=== PATIENT | male | born 1950 | race Caucasian/White ===

== ENCOUNTER 2024-01-10 23:51 | Emergency (ER) | payer OTHER, SELFPAY ==
[2024-01-11] MEDS ORDERED: NA CHLORIDE 0.9% 500 ML ONE (00:48)
[2024-01-11] MEDS ORDERED: NA CHLORIDE 0.9% 1,000 ML ONE (00:48)
[2024-01-11 01:02] LABS: Absolute Basophils 0.1 K/uL (0-0.5); Absolute Eosinophils 0.2 K/uL (0-0.5); Absolute Monocytes 0.8 K/uL (0.1-1.3); Absolute Neutrophil 3.9 K/uL (1.8-8.0); Basophils % 1.1 % (0-1.3); Eosinophils % 2.8 % (0-4.4); Hematocrit 42.1 % (39.6-49.0); Hemoglobin 13.2 g/dL (13.6-17.9); Lymphocytes % 28.8 % (15.3-44.8); MCH 22.1 pg (27.0-35.0); MCHC 31.4 g/dL (32.0-36.0); MCV 70.2 fL (80-100); Monocytes % 11.8 % (3.3-12.3); Neutrophils % 55.5 % (41.7-73.7); Nucleated Red Blood Cells % 0.1 % (0-0); PT Prothrombin Time 13.1 SECONDS (9.4-12.5); Platelets 388 thou/uL (152-406); Protime INR 1.18; Red Cell Distribution Width 20.6 % (12.1-15.2)
[2024-01-11 01:12] LABS: SARS-CoV-2 Antigen CONTROL BLUE LINE VIS/BG OK; SARS-CoV-2 Antigen Rapid Res Negative (Negative)
[2024-01-11 01:18] LABS: Albumin 3.3 g/dL (3.4-5.0); Albumin/Globulin Ratio 0.8 (1.1-1.8); Anion Gap 7.6 mEq/L (5.0-15.0); Bilirubin Direct 0.2 mg/dL (0-0.2); Bilirubin Indirect, Calculated 0.4 mg/dL (0.2-0.8); Bilirubin Total 0.6 mg/dL (0.2-1.0); Potassium 3.6 mEq/L (3.5-5.1); Protein, Total 7.3 g/dL (6.4-8.2); Troponin High Sensitivity 6.2 pg/mL (<58.9)
[2024-01-11 01:18] LABS: Sqamous Epithelial <5 /HPF (None Seen); Urine Bacteria 20-50 /HPF (<20); Urine Bilirubin NEGATIVE (Negative); Urine Blood 1+ (Negative); Urine Clarity Extremely Turbid (Clear); Urine Color Yellow (Yellow); Urine Culture Reflex Order REFLEXED; Urine Glucose NEGATIVE (Negative); Urine Ketones NEGATIVE (Negative); Urine Microscopic Reflex YN ORDER UMIC; Urine Mucus Slight /HPF (None Seen); Urine Nitrite 2+ (Negative); Urine Protein 1+ (Negative); Urine Urobilinogen Normal (Normal); Urine WBC >50 /HPF (<5); Urine WBC Clump Rare /HPF (None Seen)
[2024-01-11 01:34] LABS: Anisocytosis 1+; Blood Morphology Comment NOTED (NOT SEEN); Microcytosis 1+; Ovalocytes 2+; Platelet Estimate ADEQ; White Blood Cell Scan OK (OK)
--- NOTE | 2024-01-11 01:49 | ER ---
Nurse's Notes [facility] Name: Luis Fernando Fung Age: 73 yrs Sex: Male : 1950 Arrival Date: 01/10/2024 Time: 23:51 Bed 5 Private MD: Diagnosis: Cough;Acute upper respiratory infection, unspecified;Encounter for change or removal of nonsurgical wound dressing;UTI/ Urinary tract infection, site not specified;supervisor intermediates (current) use of anticoagulants;Chronic atrial fibrillation Presentation: 01/10 00:47 Chief complaint: Spouse and/or significant other states: We have been driving down for vc1 the last 3 days from [place], He has been having some cognitive changes, cough, trouble breathing, headache, backache, and sore throat. Coronavirus screen: Client denies travel out of the [place] in the last 14 days. cough unrelated to allergies, difficulty breathing, headache, muscle pain, sore throat, Client presents with at least one sign or symptom that may indicate coronavirus-19. Ebola Screen: Patient negative for fever greater than or equal to 101.5 degrees Fahrenheit, and additional compatible Ebola Virus Disease symptoms Patient denies exposure to infectious person. Patient denies travel to an Ebola-affected area in the 21 days before illness onset. No symptoms or risks identified at this time. Initial Sepsis Screen: Does the patient meet any 2 criteria? No. Patient's initial sepsis screen is negative. Does the patient have a suspected source of infection? No. Patient's initial sepsis screen is negative. Risk Assessment: Do you want to hurt yourself or someone else? Patient reports no desire to harm self or others. Onset of symptoms was January 11, 2024. 00:47 Method Of Arrival: Wheelchair vc1 00:47 Acuity: DEV 3 vc1 Triage Assessment: 00:59 General: Appears in no apparent distress. uncomfortable, well groomed, well developed, vc1 Behavior is calm, cooperative, appropriate for age. Pain: Complains of pain in headache, back, throat Pain does not radiate. Pain currently is 5 out of 10 on a pain scale. EENT: No deficits noted. No signs and/or symptoms were reported regarding the EENT system. Neuro: Level of Consciousness is awake, alert, obeys commands, Oriented to person, place, situation. Cardiovascular: Edema bilateral legs. Respiratory: Reports shortness of breath at rest Airway is patent Respiratory effort is even, unlabored, Respiratory pattern is regular, symmetrical. Respiratory: the patient has mild shortness of breath. GI: No deficits noted. No signs and/or symptoms were reported involving the gastrointestinal system. : Reports self caths. Derm: Wound noted left leg. Musculoskeletal:. Musculoskeletal: Reports pain in back. Historical: - Allergies: 00:50 No Known Allergies; vc1 - Home Meds: 00:50 Eliquis oral [Active]; vc1 - PMHx: 00:50 Multiple sclerosis; Seizure; Possible stroke; Hypertensive disorder; Restless leg vc1 Syndrome; Atrial fibrillation; Cognitive disorders; high cholesterol; - PSHx: 00:50 None; vc1 - Immunization history:: Adult Immunizations unknown. - Infectious Disease History:: Denies. - Family history:: not pertinent. - Social history:: Smoking status: Patient/guardian denies using tobacco, but has a distant history of tobacco abuse. Screenin:57 [facility] ED Fall Risk Assessment (Adult) History of falling in the last 3 months, vc1 including since admission Yes- fall prone (multiple falls) (3 pts) Confusion or Disorientation Yes (5 pts) Intoxicated or Sedated No (0 pts) Impaired Gait Yes (1 pt) Mobility Assist Device Used Yes (1 pt) Altered Elimination Yes (1 pt) Score/Fall Risk Level 3 or more points = High Risk Oriented to surroundings, Maintained a safe environment, Educated pt \T\ family on fall prevention, incl call for assistance when getting out of bed. Abuse screen: Denies threats or abuse. Nutritional screening: No deficits noted. Tuberculosis screening: No symptoms or risk factors identified. Assessment: 00:58 General: Appears in no apparent distress. Pain: Complains of pain in throat, back, vc1 headache. Neuro: Level of Consciousness is awake, alert, obeys commands, Oriented to person, place, time, situation, Appropriate for age. Cardiovascular: Capillary refill < 3 seconds Patient's skin is warm and dry. Respiratory: Airway is patent Respiratory effort is even, unlabored, Respiratory pattern is regular, symmetrical, Breath sounds are clear bilaterally. 02:25 Reassessment: Patient appears in no apparent distress at this time. No changes from lg3 previously documented assessment. Patient and/or family updated on plan of care and expected duration. Pain level reassessed. Patient is alert, oriented x 3, equal unlabored respirations, skin warm/dry/pink. Patient states feeling better. Vital Signs: 00:47 BP 134 / 94; Pulse 74; Resp 17; Temp 98.2; Pulse Ox 94% on R/A; Weight 124.74 kg; vc1 Height 6 ft. 5 in. ; Pain 5/10; 02:26 BP 143 / 93; Pulse 87; Resp 15 S; Temp 98.5(O); Pulse Ox 96% on R/A; lg3 00:47 Body Mass Index 32.61 (124.74 kg, 195.58 cm) vc1 00:47 Pain Scale: Adult vc1 ED Course: 01/09 23:55 Patient arrived in ED. [email or web address] 01/10 00:06 Vern Mckinney MD is Attending Physician. gonzales 00:36 XRAY Chest (1 view) In Process Unspecified. EDMS 00:50 Triage completed. vc1 00:57 Arm band placed on right wrist. vc1 00:58 Patient has correct armband on for positive identification. Bed in low position. Call vc1 light in reach. nurse monitoring on. Pulse ox on. NIBP on. 00:58 Inserted saline lock: 20 gauge in right forearm, using aseptic technique. Blood vc1 collected. Flushed with 10 mL NS. 01:06 Yoly Cotton, RN is Primary Nurse. lg3 01:16 CT Head Brain wo Cont In Process Unspecified. EDMS 01:47 Andi Reno MD is Referral Physician. gonzales 02:27 No provider procedures requiring assistance completed. IV discontinued, intact, lg3 bleeding controlled, No redness/swelling at site. Pressure dressing applied. 02:27 Wound care: to abrasion, located on left tan was cleaned with soap and water, Patient lg3 tolerated well. Administered Medications: 01:10 Drug: NS 0.9% IV 500 ml 500 ml IV at 1 bolus once; to be given as a bolus over 30 lg3 minutes Volume: 500 ml; Route: IV; Rate: 1 bolus; Site: right forearm; 02:25 Follow up: Response: No adverse reaction; IV Status: Completed infusion; IV Intake: lg3 500ml 01:10 Drug: NS 0.9% IV 1000 ml IV at 125 ml/hr continuous Route: IV; Rate: 125 ml/hr; Site: lg3 right forearm; 02:25 Follow up: Response: No adverse reaction; IV Status: Order to discontinue infusion; IV lg3 Intake: 250ml 01:40 CANCELLED (Duplicate Order): [id number] mg PO once gonzales 02:06 Drug: predniSONE PO 40 mg PO once Route: PO; lg3 02:24 Follow up: Response: No adverse reaction lg3 02:06 Drug: Silver SulfADIAZINE Topical Cream 1 % 1 application Topical once; left lat leg lg3 Route: Topical; Site: affected area; 02:24 Follow up: Response: No adverse reaction lg3 02:06 Drug: LevOfloxacin PO 500 mg PO once Route: PO; lg3 02:24 Follow up: Response: No adverse reaction lg3 02:06 Drug: Tussionex Pennkinetic ER PO Suspension 5 ml PO once Route: PO; lg3 02:24 Follow up: Response: No adverse reaction lg3 02:07 Drug: MethylPrednisoLONE IVP 125 mg IVP once Route: IVP; Site: right forearm; lg3 02:25 Follow up: Response: No adverse reaction lg3 02:07 Drug: Rocephin IV 1 grams IV at per protocol once; Given slow IV push per pharmacy lg3 instructions Route: IV; Rate: per protocol; Site: right forearm; 02:24 Follow up: Response: No adverse reaction; IV Status: Completed infusion; IV Intake: [id number] 02:24 Drug: Levalbuterol Inhalation 2.5 mg Inhalation once Route: Inhalation; lg3 02:25 Follow up: Response: No adverse reaction lg3 02:24 Drug: Ipratropium Inhalation Aerosol 0.5 mg Inhalation once Route: Inhalation; lg3 02:24 Follow up: Response: No adverse reaction lg3 Medication: 00:58 VIS not applicable for this client. vc1 Intake: 02:24 IV: 10ml; Total: 10ml. lg3 02:25 IV: 500ml; Total: 510ml. lg3 02:25 IV: 250ml; Total: 760ml. lg3 Outcome: 01:48 Discharge ordered by . gonzales 02:28 Discharged to home ambulatory, lg3 02:28 Condition: stable 02:28 Discharge instructions given to patient, Instructed on discharge instructions, follow up and referral plans. medication usage, Demonstrated understanding of instructions, follow-up care, medications, Prescriptions given X 5 02:28 Patient left the ED. lg3 Signatures: Dispatcher [employer] EDVern Rincon MD MD cha Able, Lacie RN RN lg3 Aracely [email or web address] Susana Donohue RN RN vc1 Corrections: (The following items were deleted from the chart) 00:57 00:50 Home Meds: None; vc1 vc1
--- NOTE | 2024-01-11 01:49 | EDPHYS ---
Physician Documentation [facility] Name: Luis Fernando Fung Age: 73 yrs Sex: Male : 1950 Arrival Date: 01/10/2024 Time: 23:51 Bed 5 Private MD: ED Physician Vern Mckinney HPI: 01/10 00:55 This 73 yrs old Male presents to ER via Wheelchair with complaints of Cough, gonzales Congestion, Headache, PT has H/O Multiple Sclerosis and is feeling very disorientated., General Weakness. 00:55 The patient or guardian reports airway noise, cough, described as mild. Onset: The gonzales symptoms/episode began/occurred 2 day(s) ago. Severity of symptoms: At their worst the symptoms were mild, moderate, in the emergency department the symptoms are unchanged. Modifying factors: The symptoms are alleviated by nothing, the symptoms are aggravated by nothing. Associated signs and symptoms: The patient has no apparent associated signs or symptoms. The patient has experienced similar episodes in the past, multiple times. Historical: - Allergies: 00:50 No Known Allergies; vc1 - Home Meds: 00:50 Eliquis oral [Active]; vc1 - PMHx: 00:50 Multiple sclerosis; Seizure; Possible stroke; Hypertensive disorder; Restless leg vc1 Syndrome; Atrial fibrillation; Cognitive disorders; high cholesterol; - PSHx: 00:50 None; vc1 - Immunization history:: Adult Immunizations unknown. - Infectious Disease History:: Denies. - Family history:: not pertinent. - Social history:: Smoking status: Patient/guardian denies using tobacco, but has a distant history of tobacco abuse. ROS: 01:41 Constitutional: Negative for fever, chills, and weight loss, Eyes: Negative for injury, gonzales pain, redness, and discharge, ENT: Negative for injury, pain, and discharge, Neck: Negative for injury, pain, and swelling, Cardiovascular: Negative for chest pain, palpitations, and edema, Abdomen/GI: Negative for abdominal pain, nausea, vomiting, diarrhea, and constipation, Back: Negative for injury and pain, : Negative for injury, bleeding, discharge, and swelling, Skin: Negative for injury, rash, and discoloration, Neuro: Negative for headache, weakness, numbness, tingling, and seizure, Psych: Negative for depression, anxiety, suicide ideation, homicidal ideation, and hallucinations, Allergy/Immunology: Negative for hives, rash, and allergies, Endocrine: Negative for neck swelling, polydipsia, polyuria, polyphagia, and marked weight changes, Hematologic/Lymphatic: Negative for swollen nodes, abnormal bleeding, and unusual bruising, 01:41 Respiratory: Positive for cough, shortness of breath, at rest. 01:41 MS/extremity: Positive for erythema, pain, tenderness, of the lateral aspect of left calf, Exam: 00:56 ECG was reviewed by the Attending Physician. gonzales 01:50 Constitutional: This is a well developed, well nourished patient who is awake, alert, gonzales and in no acute distress. Head/Face: Normocephalic, atraumatic. Eyes: Pupils equal round and reactive to light, extra-ocular motions intact. Lids and lashes normal. Conjunctiva and sclera are non-icteric and not injected. Cornea within normal limits. Periorbital areas with no swelling, redness, or edema. ENT: Nares patent. No nasal discharge, no septal abnormalities noted. Tympanic membranes are normal and external auditory canals are clear. Oropharynx with no redness, swelling, or masses, exudates, or evidence of obstruction, uvula midline. Mucous membranes moist. Neck: Trachea midline, no thyromegaly or masses palpated, and no cervical lymphadenopathy. Supple, full range of motion without nuchal rigidity, or vertebral point tenderness. No Meningismus. Chest/axilla: Normal chest wall appearance and motion. Nontender with no deformity. No lesions are appreciated. Cardiovascular: Regular rate and rhythm with a normal S1 and S2. No gallops, murmurs, or rubs. Normal PMI, no JVD. No pulse deficits. Abdomen/GI: Soft, non-tender, with normal bowel sounds. No distension or tympany. No guarding or rebound. No evidence of tenderness throughout. Back: No spinal tenderness. No costovertebral tenderness. Full range of motion. Male : Normal genitalia with no discharge or lesions. Skin: Warm, dry with normal turgor. Normal color with no rashes, no lesions, and no evidence of cellulitis. Neuro: Awake and alert, GCS 15, oriented to person, place, time, and situation. Cranial nerves II-XII grossly intact. Motor strength 5/5 in all extremities. Sensory grossly intact. Cerebellar exam normal. Normal gait. Psych: Awake, alert, with orientation to person, place and time. Behavior, mood, and affect are within normal limits. 01:50 Musculoskeletal/extremity: ROM: intact in all extremities, full active range of motion, Circulation is intact in all extremities. Sensation intact. Compartment Syndrome exam of affected extremity: is normal. Weight bearing: able to fully bear weight, DVT Exam: no pain, no swelling, no tenderness, negative Homans' sign noted on exam, no appreciated bluish discoloration, no erythema, no increased warmth, 01:51 ECG was reviewed by the Attending Physician. [facility] Vital Signs: 00:47 BP 134 / 94; Pulse 74; Resp 17; Temp 98.2; Pulse Ox 94% on R/A; Weight 124.74 kg; vc1 Height 6 ft. 5 in. ; Pain 5/10; 02:26 BP 143 / 93; Pulse 87; Resp 15 S; Temp 98.5(O); Pulse Ox 96% on R/A; lg3 00:47 Body Mass Index 32.61 (124.74 kg, 195.58 cm) vc1 00:47 Pain Scale: Adult vc1 MDM: 00:06 Medical Screening Exam initiated gonzales 00:58 Differential diagnosis: Anxiety Reaction asthma, Bronchitis CHF exacerbation, Chronic gonzales Obstructive Pulmonary Disease Myocardial Infarction pneumonia, pulmonary edema, reactive airway disease, Sepsis Unstable Angina. Antibiotic administration: zosyn. Differential Diagnosis: Obstructed Airway Bronchitis Influenza Upper Respiratory Infection Sinusitis Pharyngitis Otitis Media Allergic Rhinitis Asthma Exacerbation Viral Syndrome Pneumonia. Immunization status: Pneumococcal vaccine: within last 5 years. Influenza vaccine: within last 5 years. Data reviewed: vital signs, nurses notes, lab test result(s), EKG, radiologic studies, CT scan, plain films. Consideration of Admission/Observation Escalation of care including admission/observation considered. I considered the following discharge prescriptions or medication management in the emergency department Medications were administered in the Emergency Department. See MAR. Independent interpretation of the following test(s) in the Emergency Department EKG: See my EKG interpretation above. Test considered but Not performed: MRI: no mri brain. 01/10 00:07 Order name: Basic Metabolic Panel; Complete Time: 01:34 [facility] 01/10 00:07 Order name: CBC with Diff; Complete Time: 01:47 [facility] 01/10 00:07 Order name: LFT's; Complete Time: 01:34 [facility] 01/10 00:07 Order name: Magnesium; Complete Time: 01:34 [facility] 01/10 00:07 Order name: NT PRO-BNP; Complete Time: :34 [facility] 01/10 00:07 Order name: PT-INR; Complete Time: 01:14 [facility] 01/10 00:07 Order name: Troponin HS; Complete Time: 01:34 [facility] 01/10 00:07 Order name: SARS RAPID; Complete Time: :14 [facility] 01/10 00:07 Order name: Flu; Complete Time: 01:34 [facility] 01/10 00:07 Order name: Urinalysis w/ reflexes; Complete Time: 01:34 [facility] 01/10 00:07 Order name: Lipase; Complete Time: :34 [facility] 01/10 00:57 Order name: Strep; Complete Time: 01:47 vc1 01/10 01:06 Order name: CBC Smear Scan; Complete Time: 01:47 [facility] 01/10 01:23 Order name: Urine Culture [facility] 01/10 01:38 Order name: Throat Culture [facility] 01/10 00:07 Order name: XRAY Chest (1 view) [facility] 01/10 00:07 Order name: CT Head Brain wo Cont [facility] 01/10 00:07 Order name: EKG; Complete Time: 00:08 [facility] 01/10 00:07 Order name: Cardiac monitoring; Complete Time: 01:10 [facility] 01/10 00:07 Order name: EKG - Nurse/Tech; Complete Time: 01:10 [facility] 01/10 00:07 Order name: IV Saline Lock; Complete Time: 01:10 [facility] 01/10 00:07 Order name: Labs collected and sent; Complete Time: 01:10 [facility] 01/10 00:07 Order name: O2 Per Protocol; Complete Time: 01:10 [facility] 01/10 00:07 Order name: O2 Sat Monitoring; Complete Time: 01:10 [facility] EC:51 Rate is 75 beats/min. Rhythm is irregularly irregular. QRS [place]ah[place] is Normal. OK interval gonzales is normal. QRS interval is normal. QT interval is normal. No Q waves. T waves are Normal. No ST changes noted. Clinical impression: Atrial Fibrillation and No evidence of ischemia. Interpreted by me. Reviewed by me. Administered Medications: 01:10 Drug: NS 0.9% IV 500 ml 500 ml IV at 1 bolus once; to be given as a bolus over 30 lg3 minutes Volume: 500 ml; Route: IV; Rate: 1 bolus; Site: right forearm; 02:25 Follow up: Response: No adverse reaction; IV Status: Completed infusion; IV Intake: lg3 500ml 01:10 Drug: NS 0.9% IV 1000 ml IV at 125 ml/hr continuous Route: IV; Rate: 125 ml/hr; Site: lg3 right forearm; 02:25 Follow up: Response: No adverse reaction; IV Status: Order to discontinue infusion; IV lg3 Intake: 250ml 01:40 CANCELLED (Duplicate Order): [id number] mg PO once gonzales 02:06 Drug: predniSONE PO 40 mg PO once Route: PO; lg3 02:24 Follow up: Response: No adverse reaction lg3 02:06 Drug: Silver SulfADIAZINE Topical Cream 1 % 1 application Topical once; left lat leg lg3 Route: Topical; Site: affected area; 02:24 Follow up: Response: No adverse reaction lg3 02:06 Drug: LevOfloxacin PO 500 mg PO once Route: PO; lg3 02:24 Follow up: Response: No adverse reaction lg3 02:06 Drug: Tussionex Pennkinetic ER PO Suspension 5 ml PO once Route: PO; lg3 02:24 Follow up: Response: No adverse reaction lg3 02:07 Drug: MethylPrednisoLONE IVP 125 mg IVP once Route: IVP; Site: right forearm; lg3 02:25 Follow up: Response: No adverse reaction lg3 02:07 Drug: Rocephin IV 1 grams IV at per protocol once; Given slow IV push per pharmacy lg3 instructions Route: IV; Rate: per protocol; Site: right forearm; 02:24 Follow up: Response: No adverse reaction; IV Status: Completed infusion; IV Intake: [id number] 02:24 Drug: Levalbuterol Inhalation 2.5 mg Inhalation once Route: Inhalation; lg3 02:25 Follow up: Response: No adverse reaction lg3 02:24 Drug: Ipratropium Inhalation Aerosol 0.5 mg Inhalation once Route: Inhalation; lg3 02:24 Follow up: Response: No adverse reaction lg3 Disposition Summary: 01/11/24 01:48 Discharge Ordered Notes: Location: Home gonzales Problem: new gonzales Symptoms: have improved gonzales Condition: Stable gonzales Diagnosis - Cough gonzales - Acute upper respiratory infection, unspecified gonzales - Encounter for change or removal of nonsurgical wound dressing gonzales - UTI/ Urinary tract infection, site not specified gonzales - snf (current) use of anticoagulants gonzales - Chronic atrial fibrillation gonzales Followup: gonzales - With: Private Physician - When: 2 - 3 days - Reason: Recheck today's complaints, Continuance of care, Re-evaluation by your physician Followup: gonzales - With: Andi Reno MD - When: 2 - 3 days - Reason: Recheck today's complaints, Re-evaluation by your physician Discharge Instructions: - Discharge Summary Sheet gonzales - Atrial Fibrillation gonzales - Bronchospasm, Adult gonzales - Upper Respiratory Infection, Adult gonzales - Urinary Tract Infection, Adult gonzales - Cool Mist Vaporizer gonzales - Urinary Tract Infection, Adult, Okva-nx-Xzcy gonzales - Upper Respiratory Infection, Adult, Iuhz-au-Qaxe gonzales - Cough, Adult, Lskm-kq-Hbzg gonzales - Bronchospasm, Adult, Ytuk-br-Iqyv gonzales - Cough, Adult gonzales Forms: - Medication Reconciliation Form gonzales - Antibiotic Education gonzales - Prescription Opioid Use gonzales - Patient Portal Instructions [facility] - Leadership Thank You Letter [facility] Prescriptions: - albuterol sulfate 90 mcg/actuation Inhalation HFA Aerosol Inhaler - inhale 2 puff INHALATION route every 4-6 hours; 2 unit; Refills: 0, Product [facility] Selection Permitted - Silvadene 1 % Topical Cream - Apply to affected area 1 application TOPICAL route every 12 hours; 20 gram; [facility] Refills: 0, Product Selection Permitted - Prednisone 20 mg Oral Tablet - take 2 tablets ORAL route once daily for 5 days; 10 tablet; Refills: 0, Product [facility] Selection Permitted - Guaifenesin AC 10-100 mg/5 mL Oral liquid - take 7.5 milliliter ORAL route every 6-8 hours As needed; 160 milliliter; [facility] Refills: 0, Product Selection Permitted - levofloxacin 500 mg Oral tablet - take 1 tablet ORAL route once daily for 7 days; 7 tablet; Refills: 0, Product [facility] Selection Permitted Signatures: Dispatcher [employer] Vern Woodard MD MD cha Able, Lacie RN RN lg3 Susana Donohue RN RN vc1 Corrections: (The following items were deleted from the chart) 00:08 00:08 BASIC METABOLIC PANEL+C.LAB.BRZ ordered. [facility] EDMS 00:08 00:08 CBC+H.LAB.BRZ ordered. [facility] 00:08 00:08 HEPATIC FUNCTION+C.LAB.BRZ ordered. [facility] 00:08 00:08 MAGNESIUM+C.LAB.BRZ ordered. [facility] 00:08 00:08 PROBNP+C.LAB.BRZ ordered. [facility] 00:08 00:08 PROTIME (+INR)+COAG.LAB.BRZ ordered. [facility] 00:08 00:08 Troponin High Sensitivity+C.LAB.BRZ ordered. [facility] 00:08 00:08 SARS-COV-2 Antigen Rapid+I.LAB.BRZ ordered. [facility] 00:08 00:08 Influenza Screen (A \\T\\ B)+BA.LAB.BRZ ordered. [facility] 00:08 00:08 Urinalysis+U.LAB.BRZ ordered. [facility] 00:08 00:08 LIPASE+C.LAB.BRZ ordered. [facility] 00:57 00:50 Home Meds: None; vc1 vc1 01:40 01:37 LevOfloxacin PO 750 mg PO once ordered. [facility] : 00:56 Constitutional: Negative for fever, chills, and weight loss, Eyes: Negative for [facility] injury, pain, redness, and discharge, ENT: Negative for injury, pain, and discharge, Neck: Negative for injury, pain, and swelling, Cardiovascular: Negative for chest pain, palpitations, and edema, Abdomen/GI: Negative for abdominal pain, nausea, vomiting, diarrhea, and constipation, Back: Negative for injury and pain, : Negative for injury, bleeding, discharge, and swelling, MS/Extremity: Negative for injury and deformity, Skin: Negative for injury, rash, and discoloration, Neuro: Negative for headache, weakness, numbness, tingling, and seizure, Psych: Negative for depression, anxiety, suicide ideation, homicidal ideation, and hallucinations, Allergy/Immunology: Negative for hives, rash, and allergies, Endocrine: Negative for neck swelling, polydipsia, polyuria, polyphagia, and marked weight changes, Hematologic/Lymphatic: Negative for swollen nodes, abnormal bleeding, and unusual bruising, [facility] : 00:56 Respiratory: Positive for cough, "sounds productive", [facility] 01:41 00:56 Constitutional: This is a well developed, well nourished patient who is awake, gonzales alert, and in no acute distress. Head/Face: Normocephalic, atraumatic. Eyes: Pupils equal round and reactive to light, extra-ocular motions intact. Lids and lashes normal. Conjunctiva and sclera are non-icteric and not injected. Cornea within normal limits. Periorbital areas with no swelling, redness, or edema. ENT: Nares patent. No nasal discharge, no septal abnormalities noted. Tympanic membranes are normal and external auditory canals are clear. Oropharynx with no redness, swelling, or masses, exudates, or evidence of obstruction, uvula midline. Mucous membranes moist. Neck: Trachea midline, no thyromegaly or masses palpated, and no cervical lymphadenopathy. Supple, full range of motion without nuchal rigidity, or vertebral point tenderness. No Meningismus. Chest/axilla: Normal chest wall appearance and motion. Nontender with no deformity. No lesions are appreciated. Cardiovascular: Regular rate and rhythm with a normal S1 and S2. No gallops, murmurs, or rubs. Normal PMI, no JVD. No pulse deficits. Abdomen/GI: Soft, non-tender, with normal bowel sounds. No distension or tympany. No guarding or rebound. No evidence of tenderness throughout. Back: No spinal tenderness. No costovertebral tenderness. Full range of motion. Male : Normal genitalia with no discharge or lesions. Skin: Warm, dry with normal turgor. Normal color with no rashes, no lesions, and no evidence of cellulitis. MS/ Extremity: Pulses equal, no cyanosis. Neurovascular intact. Full, normal range of motion. Neuro: Awake and alert, GCS 15, oriented to person, place, time, and situation. Cranial nerves II-XII grossly intact. Motor strength 5/5 in all extremities. Sensory grossly intact. Cerebellar exam normal. Normal gait. Psych: Awake, alert, with orientation to person, place and time. Behavior, mood, and affect are within normal limits. [facility] 01:50 00:56 Respiratory: the patient does not display signs of respiratory distress, [facility] Respirations: no acute changes, is not noted, Breath sounds: bronchial sounds, that are mild, are scattered, decreased breath sounds, that are mild, are located in both bases, rhonchi, that are mild, Respiratory rate: 24 gonzales 01:51 00:56 Rate is 83 beats/min. Rhythm is regular. QRS Dahlen is Normal. OK interval is gonzales normal. QRS interval is normal. QT interval is normal. No Q waves. T waves are Normal. No ST changes noted. Clinical impression: NSR w/ Non-specific ST/T Changes and LVH. Interpreted by me. Reviewed by me. gonzales
[2024-01-11] MEDS ORDERED: METHYLPREDNISOLONE 125 MG INJ ONE (02:03)
[2024-01-11] MEDS ORDERED: CEFTRIAXONE 1000 MG/VIAL ONE (02:03)
[2024-01-11] MEDS ORDERED: predniSONE 20 MG TAB ONE (02:03)
[2024-01-11] MEDS ORDERED: levoFLOXacin 250 MG TAB ONE (02:03)
[2024-01-11] MEDS ORDERED: HYDROCODONE/CHLORPHEN 5 ML/OSYR ONE (02:03)
[2024-01-11] MEDS ORDERED: SILVER SULFADIAZINE 1% 25 GM TOP ONE (02:04)
[2024-01-11] MEDS ORDERED: LEVALBUTEROL 1.25 MG/3 ML NEB ONE (02:23)
[2024-01-11] MEDS ORDERED: IPRATROPIUM BROM 0.5MG/2.5ML ONE (02:23)
--- NOTE | 2024-01-11 03:01 | RAD REPORT ---
EXAM: CT Head Without Intravenous Contrast CLINICAL HISTORY: Dizziness, headache. TECHNIQUE: Axial computed tomography images of the head/brain without intravenous contrast. Sagittal and coron al reformatted images were created and reviewed. This CT exam was performed using one or more of the following dose reduction techniques: automated exposure control, adjustment of the mA and/or kV according to patient size, and/or use of iterative reconstruction technique. COMPARISON: No relevant prior studies available. FINDINGS: Brain: Mild cerebral atrophy. Mild bilateral periventricular and subcortical white matter low atten uation most compatible with chronic microvascular angiopathy. No hemorrhage. Ventricles: Unremarkable. No ventriculomegaly. Bones/joints: Unremarkable. No acute fracture. Soft tissues: Unremarkable. Vasculature: There is atherosclerotic disease of the internal carotid arteries bilaterally. Sinuses: Bilateral maxillary sinus mucus retention cysts/polyps. Mastoid air cells: Unremarkable as visualized. No mastoid effusion. IMPRESSION: 1. No acute intracranial or extra-axial abnormality. 2. Other findings as above. Electronically signed by: Loren Conteh MD 01/11/2024 02:50 AM CDT Due to temporary technical issues with the PACS/Soce[employer] reporting system, reports are being anibal d by the in-house radiologist without review as a courtesy to ensure prompt reporting the interpreting radiologist is fully responsible for the content of the report. Transcribed Date/Time: 01/11/2024 3:00 AM
--- NOTE | 2024-01-11 04:53 | RAD REPORT ---
PROCEDURE: XR Chest, 1 View CLINICAL INDICATION: The patient is 73 years old and is Male; Cough. TECHNIQUE: Frontal view of the chest. COMPARISON: None. FINDINGS: LUNGS: No discrete focal consolidation. PLEURAL SPACE: No appreciable pleural effusion or pneumothorax. MEDIASTINUM: Prominence of the cardiomediastinal silhouette, likely exaggerated secondary to portab le technique, lordotic positioning, and patient body habitus. BONES/JOINTS: Multilevel spondylosis. VASCULATURE: Calcified atherosclerosis of the thoracic aorta. IMPRESSION: No acute findings in the chest. Electronically signed by: Caden White MD 01/11/2024 02:21 AM CDT RP Due to temporary technical issues with the PACS/[employer] reporting system, reports are being anibal d by the in-house radiologist without review as a courtesy to ensure prompt reporting the interpreting radiologist is fully responsible for the content of the report. Transcribed Date/Time: 01/11/2024 4:53 AM
[2024-01-11 07:29] VITALS: BP 134/94; TEMP 98.2; O2SAT 94
--- NOTE | 2024-01-13 12:00 | EKG ---
Test Date: 2024-01-11 Test Time: 00:49:32 Federal Agent: [place] MEASUREMENT RESULTS: Intervals: Rate: 75 [place]: QRSD: 108 QT: 440 QTc: 491 [place]: P: [place]: QRS: -64 T: 60 INTERPRETIVE STATEMENTS: Atrial fibrillation Left axis deviation Abnormal ECG No previous ECG available for comparison Electronically Signed On 01-13-24 11:54:01 CDT by Oren Kam
== END 2024-01-11 02:28 | disposition home or self-care (01) ==
LOC: ER 23:51
DX: J06.9 Acute upper respiratory infection, unspecified (principal); N39.0 Urinary tract infection, site not specified; I48.20 Chronic atrial fibrillation, unspecified; Z79.01 Long term (current) use of anticoagulants; Z11.52 Encounter for screening for COVID-19
CPT/HCPCS: 93005; 87070; 87088; 85025; 81001; 87086; 80048; 36415; 83735; 85610; 80076; 87081; 84484; 83690; 83880; 87804 ×2; 70450; 71045; 87811; J7512; J7614; J7644; J2919; J7040; J7030; J0696; 87077; 87186; 96361; 96365; 96375; 99285